=== PATIENT | female | born 1960 | race Caucasian/White ===

== ENCOUNTER → 2017-01-10 | Outpatient (CLI) | payer BC ==
[~2017-01-10] MED LIST: ABILIFY10 MG PO; AMBIEN10 MG PO; ESTRACE1 MG PO; FLUOXETINE HCL20 M1 PO; HYDROCHLOROTH12.5 M1 PO; LASIX20 MG PO; LOVENOX40 MG/0.4 INJ; METHYLPHENIDATE20 M2 PO; PERCOCET 5-3251 TAB PO
--- NOTE | ~2017-01-10 | CT92 ---
[facility] A Service of [facility] RADIOLOGY TEXT RESULTS PATIENT: SHAY VANN [facility] 64 UNIT #: [id number] AGE: [address]: Ramakrishna Dolan MD SEX: F ORDER DR: [id number] [facility] [address] [place], [place] [address] [id number] O MR#: [id number] Acc #: [id number] NAME: SHAY VANN : 1960 SEX: F STUDY DATE/TIME: 01/10/2017 8:27 UNIT: [facility] ROOM: STUDY DESCRIPTION: CT Lower Ext Lt Wo Cont Attending Physician: Kareem Dolan M.D. Referring Physician: Kareem Dolan M.D. Ordering Physician: Kareem Dolan M.D. Primary Care Physician: Willis Correa M.D. MEDICAL IMAGING REPORT This report is preliminary unless electronic signature is present EXAM CT left ankle HISTORY A 56-year-old female left subtalar joint pain since 2009. Ankle surgery 12/09/2012. Patient underwent left foot lateral column lengthening procedure and calcaneal osteotomy and medial cuneiform dorsal opening wedge osteotomy. COMPARISON Foot and ankle films 01/03/2017 operative report 12/09/2012 TECHNIQUE Thin section axial images form through the left ankle without contrast. Multiplanar reconstructed images reviewed a workstation. This CT exam was performed with one or more of the following radiation dose reduction techniques: automatic exposure control, adjustment of mA and/or kV according to patient size, and iterative reconstruction. FINDINGS Postsurgical changes noted from apparent calcaneal osteotomy. Two partially cannulated screws traverse the posterior calcaneus and terminate just beneath the posterior facet of the calcaneus. The osteotomy appears well healed with contiguous marrow space across the surgical defect. Multiple screw tracts are noted within the mid and anterior calcaneus from previous fixation plate and fixation. A partially threaded screw traverses the medial cuneiform. No fracture or loosening instrumentation. 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 Minimal arthritic changes seen in the subtalar joint with mild hypertrophic change anterior tibial plafond. The subtalar joint unremarkable. No significant arthropathy of midfoot. [facility] A Service of [facility] RADIOLOGY TEXT RESULTS PATIENT: SHAY VANN LOCATION: [facility] : 64 UNIT #: [id number] AGE: [address]: Ramakrishna Dolan MD SEX: F ORDER DR: Ankle ligaments and tendons unremarkable. Intrinsic foot musculature appears normal. IMPRESSION 1. Postsurgical changes of the mid and hindfoot from apparent calcaneal osteotomy and medial cuneiform opening wedge osteotomy. Intact instrumentation with normal healing of the osteotomies. 2. Minimal arthritic changes ankle joint. Dictated by... Sarahy Ramos M.D. THIS IS AN ELECTRONICALLY VERIFIED REPORT Sarahy Ramos M.D. at 01/14/2017 2:13 PM MARY/shahriar TD: 01/10/2017 14:48 JOB #: [id number] MEDICAL IMAGING REPORT Page 1 of 1 COPY
== END | disposition home or self-care (01) ==
LOC: CCAT 07:46
DX: M25.572 Pain in left ankle and joints of left foot (principal); Z98.890 Other specified postprocedural states
CPT/HCPCS: 73700